=== PATIENT | female | born 1990 | race Caucasian/White ===

== ENCOUNTER 2017-01-13 11:09 | Inpatient (IN) | payer OTHER ==
[~2017-01-13 11:09] MED LIST: Z.0.NO CURRENT MEDS
[2017-01-13 11:10] VITALS: BP 166/89; PULSE 92; RESP 16; TEMP 99.2; O2SAT 99
[2017-01-13] MEDS ORDERED: SODIUM CHLOR 0.9% 1000 ML INJ 1,000 ML IV SCH (11:35)
--- NOTE | 2017-01-13 11:40 | PD ---
HPI Chief Complaint: Abdominal Pain Time Seen by Provider: 11:22 Travel History International Travel<30 days: No Contact w/Intl Traveler<30days: No Traveled to known affect area: No History of Present Illness HPI The patient is a 26-year-old female who presents emergency department for epigastric and right upper quadrant abdominal pain. The patient notes a several month history of intermittent epigastric and right upper quadrant abdominal pain which is sharp, burning, nonradiating, and associated with mild nausea and vomiting. The patient ate hotdogs last night and then developed symptoms. She denies any history of gallstones, gastritis, pancreatitis, or known peptic ulcer disease. Her symptoms have been intermittent for several months, moderate, occasionally worse after eating, and there are no current alleviating factors. She denies any lower abdominal pain, fever, chills, sweats , dysuria, frequency, or urgency. The patient's last menstrual cycle was 3 weeks ago, PFSH Past Medical History Narrative Medical Ovarian cyst Medical History: Denies Significant Hx Diminished Hearing: No ?: Unknown : 0 Past Surgical History Narrative Surgical Noncontributory Tonsillectomy: Yes Social History Alcohol Use: No Tobacco Use: No Substance Use: No Allergies-Medications (Allergen,Severity, Reaction): Coded Allergies: Ceclor (Verified Allergy, Mild, HIVES, 01/13/17) Sulfa (Verified Allergy, Mild, HIVES, 01/13/17) Reported Meds & Prescriptions Reported Meds & Active Scripts Active No Active Prescriptions or Reported Medications Review of Systems Except as stated in HPI: all other systems reviewed are Neg General / Constitutional: No: Fever Cardiovascular: No: Chest Pain or Discomfort Respiratory: No: Shortness of Breath Gastrointestinal: Positive: Nausea, Vomiting, Abdominal Pain, No: Diarrhea Genitourinary: No: Dysuria, Hematuria Physical Exam Narrative GENERAL: Awake, alert, very pleasant 26-year-old female who appears her stated age and is in no acute respiratory distress. SKIN: Focused skin assessment warm/dry. HEAD: Atraumatic. Normocephalic. EYES: No scleral icterus. No injection or drainage. ENT: No nasal bleeding or discharge. Mucous membranes pink and moist. NECK: Trachea midline. No JVD. CARDIOVASCULAR: Regular rate and rhythm. No murmur appreciated. RESPIRATORY: No accessory muscle use. Clear to auscultation. Breath sounds equal bilaterally. GASTROINTESTINAL: Abdomen soft, obese, no rebound tenderness. Bowel epigastric and right upper quadrant tenderness. Back: No CVA tenderness. MUSCULOSKELETAL: No obvious deformities. No clubbing. No cyanosis. No edema. NEUROLOGICAL: Awake and alert. No obvious cranial nerve deficits. Motor grossly within normal limits. Normal speech. PSYCHIATRIC: Appropriate mood and affect; insight and judgment normal. Data Data Last Documented VS Vital Signs Date Time Temp Pulse Resp B/P Pulse Ox O2 Delivery O2 Flow Rate FiO2 01/13/17 12:57 78 17 120/72 97 Room Air 01/13/17 11:10 99.2 Orders Complete Blood Count With Diff (01/13/17 11:35) Comprehensive Metabolic Panel (01/13/17 11:35) Lipase (01/13/17 11:35) Urinalysis - C+S If Indicated (01/13/17 11:35) Us Abdomen Gallbladder (01/13/17 ) Iv Access Insert/Monitor (01/13/17 11:35) Ecg Monitoring (01/13/17 11:35) Oximetry (01/13/17 11:35) Morphine Inj (Morphine Inj) (01/13/17 11:45) Ondansetron Inj (Zofran Inj) (01/13/17 11:45) Sodium Chlor 0.9% 1000 Ml Inj (Ns 1000 M (01/13/17 11:35) Sodium Chloride 0.9% Flush (Ns Flush) (01/13/17 11:45) Al-Mag Hy-Si 40-40-4 Mg/Ml Liq (Mag-Al P (01/13/17 11:45) Lidocaine 2% Viscous (Xylocaine 2% Visco (01/13/17 11:45) Ed Urine Pregnancytest Poc (01/13/17 11:35) Consult Gastroenterology (01/13/17 ) Mri Mrcp W/O Contrast (01/13/17 ) (Hub Use Only)Inp Phy Cons/Ref (01/13/17 ) Admit Order (Ed Use Only) (01/13/17 13:27) Labs Laboratory Tests Test 01/13/17 01/13/17 11:40 11:45 Urine Color YELLOW Urine Turbidity CLEAR Urine pH 5.0 Urine Specific [place] 1.019 Urine Protein NEG mg/dL Urine Glucose (UA) NEG mg/dL Urine Ketones NEG mg/dL Urine Occult Blood NEG Urine Nitrite NEG Urine Bilirubin NEG Urine Urobilinogen LESS THAN 2.0 MG/DL Urine Leukocyte Esterase TRACE Urine RBC 1 /hpf Urine WBC 2 /hpf Urine Squamous Epithelial 1 /hpf Cells Microscopic Urinalysis Comment CULT NOT INDICATED White Blood Count 7.3 TH/MM3 Red Blood Count 4.79 MIL/MM3 Hemoglobin 14.2 GM/DL Hematocrit 42.0 % Mean Corpuscular Volume 87.8 FL Mean Corpuscular Hemoglobin 29.6 PG Mean Corpuscular Hemoglobin 33.8 % Concent Red Cell Distribution Width 12.0 % Platelet Count 202 TH/MM3 Mean Platelet Volume 8.9 FL Neutrophils (%) (Auto) 65.6 % Lymphocytes (%) (Auto) 25.7 % Monocytes (%) (Auto) 7.8 % Eosinophils (%) (Auto) 0.2 % Basophils (%) (Auto) 0.7 % Neutrophils # (Auto) 4.8 TH/MM3 Lymphocytes # (Auto) 1.9 TH/MM3 Monocytes # (Auto) 0.6 TH/MM3 Eosinophils # (Auto) 0.0 TH/MM3 Basophils # (Auto) 0.1 TH/MM3 CBC Comment DIFF FINAL Differential Comment Sodium Level 139 MEQ/L Potassium Level 3.8 MEQ/L Chloride Level 106 MEQ/L Carbon Dioxide Level 27.0 MEQ/L Anion Gap 6 MEQ/L Blood Urea Nitrogen 12 MG/DL Creatinine 0.82 MG/DL Random Glucose 91 MG/DL Calcium Level 8.3 MG/DL Total Bilirubin 1.9 MG/DL Aspartate Amino Transf 285 U/L (AST/SGOT) Alanine Aminotransferase 251 U/L (ALT/SGPT) Alkaline Phosphatase 77 U/L Total Protein 7.7 GM/DL Albumin 4.1 GM/DL Lipase 72844 U/L [facility] Medical Decision Making Medical Screen Exam Complete: Yes Emergency Medical Condition: Yes Medical Record Reviewed: Yes Interpretation(s) Laboratory Tests Test 01/13/17 01/13/17 11:40 11:45 Urine Color YELLOW Urine Turbidity CLEAR Urine pH 5.0 Urine Specific [place] 1.019 Urine Protein NEG mg/dL Urine Glucose (UA) NEG mg/dL Urine Ketones NEG mg/dL Urine Occult Blood NEG Urine Nitrite NEG Urine Bilirubin NEG Urine Urobilinogen LESS THAN 2.0 MG/DL Urine Leukocyte Esterase TRACE Urine RBC 1 /hpf Urine WBC 2 /hpf Urine Squamous Epithelial 1 /hpf Cells Microscopic Urinalysis Comment CULT NOT INDICATED White Blood Count 7.3 TH/MM3 Red Blood Count 4.79 MIL/MM3 Hemoglobin 14.2 GM/DL Hematocrit 42.0 % Mean Corpuscular Volume 87.8 FL Mean Corpuscular Hemoglobin 29.6 PG Mean Corpuscular Hemoglobin 33.8 % Concent Red Cell Distribution Width 12.0 % Platelet Count 202 TH/MM3 Mean Platelet Volume 8.9 FL Neutrophils (%) (Auto) 65.6 % Lymphocytes (%) (Auto) 25.7 % Monocytes (%) (Auto) 7.8 % Eosinophils (%) (Auto) 0.2 % Basophils (%) (Auto) 0.7 % Neutrophils # (Auto) 4.8 TH/MM3 Lymphocytes # (Auto) 1.9 TH/MM3 Monocytes # (Auto) 0.6 TH/MM3 Eosinophils # (Auto) 0.0 TH/MM3 Basophils # (Auto) 0.1 TH/MM3 CBC Comment DIFF FINAL Differential Comment Sodium Level 139 MEQ/L Potassium Level 3.8 MEQ/L Chloride Level 106 MEQ/L Carbon Dioxide Level 27.0 MEQ/L Anion Gap 6 MEQ/L Blood Urea Nitrogen 12 MG/DL Creatinine 0.82 MG/DL Random Glucose 91 MG/DL Calcium Level 8.3 MG/DL Total Bilirubin 1.9 MG/DL Aspartate Amino Transf 285 U/L (AST/SGOT) Alanine Aminotransferase 251 U/L (ALT/SGPT) Alkaline Phosphatase 77 U/L Total Protein 7.7 GM/DL Albumin 4.1 GM/DL Lipase 67624 U/L Ultrasound the gallbladder reveals multiple gallstones without axillary signs of acute cholecystitis. Normal common duct. Differential Diagnosis Differential diagnosis includes gastritis, peptic ulcer disease, pancreatitis, cholecystitis, biliary colic, choledocholithiasis Narrative Course IV was established, labs are drawn and sent, and the patient was placed on cardiac telemetry monitoring and continuous pulse oximetry monitoring. The patient was administered morphine, Zofran, GI cocktail, and IV fluids. Ultrasound reveals multiple gallstones, however, no evidence of acute cholecystitis and the bile duct is normal. However, lipase is elevated greater than 29,000 and AST/ALT are in the 200s with total bili of 1.9, this may be obstructive from stone. Therefore, the on-call can carrier, Dr. Camacho , was paged at 12:51 PM. The on-call medical service was paged for admission. I discussed the patient with the can carrier who agrees with [facility], formal consult has been placed. Physician Communication Physician Communication The on-call medical service was paged for admission. I discussed the patient with Dr. Waller who agrees with admission. Diagnosis Primary Impression: Pancreatitis Qualified Code: K85.90 - Acute pancreatitis, unspecified complication status, unspecified pancreatitis type Admitting Information Admitting Physician Requests: Admit Scripts No Active Prescriptions or Reported Meds Condition: Stable Yuniel Adam MD Jan 13, 2017 11:40
[2017-01-13] MEDS ORDERED: MORPHINE SULFATE 4 MG/ML INJ IV PUSH ONE (11:45)
[2017-01-13] MEDS ORDERED: LIDOCAINE VISCOUS 2% SOLN 15 ML UDC PO ONE (11:45)
[2017-01-13] MEDS ORDERED: SODIUM CHLORIDE 0.9% FLUSH 10 ML FLUSH IV FLUSH PRN ×2 (11:45→13:45)
[2017-01-13] MEDS ORDERED: ONDANSETRON HCL 4 MG/2 ML VIAL IVP ONE (11:45)
[2017-01-13] MEDS ORDERED: ALUMINUM/MAGNESIUM/SIMETH 30 ML CUP PO ONE (11:45)
[2017-01-13 12:02] LABS: AUTOMATED NEUTROPHIL # 4.8 TH/MM3 (1.8-7.7); BASOPHIL # 0.1 TH/MM3 (0-0.2); BASOPHIL % 0.7 % (0.0-2.0); EOSINOPHIL % 0.2 % (0.0-4.0); HEMO FLAGS DIFF FINAL; LYMPH % 25.7 % (9.0-44.0); LYMPHOCYTE # 1.9 TH/MM3 (1.0-4.8); MEAN CELL VOLUME 87.8 FL (80.0-100.0); MEAN CORPUSCULAR HEMOGLOBIN 29.6 PG (27.0-34.0); MEAN CORPUSCULAR HGB CONC 33.8 % (32.0-36.0); MONO % 7.8 % (0.0-8.0); NEUT % 65.6 % (16.0-70.0); PLATELET COUNT 202 TH/MM3 (150-450); RED BLOOD COUNT 4.79 MIL/MM3 (4.00-5.30); WHITE BLOOD COUNT 7.3 TH/MM3 (4.0-11.0)
[2017-01-13 12:07] LABS: BLOOD, URINE NEG (NEG); COMMENT (UR) CULT NOT INDICATED; CULTURE IF INDICATED CULT NOT INDICATED; GLUCOSE,URINE NEG (NEG); KETONE, URINE NEG (NEG); NITRITE,URINE NEG (NEG); SQUAMOUS EPITHELIAL CELL URINE 1 /hpf (0-5); URINE COLOR YELLOW (YELLW/STRAW)
[2017-01-13 12:27] VITALS: O2SAT 99
[2017-01-13 12:27] LABS: ALT (GPT) 251 U/L (10-53); ANION GAP 6 MEQ/L (5-15); AST (GOT) 285 U/L (15-37); BLOOD UREA NITROGEN 12 MG/DL (7-18); CHLORIDE 106 MEQ/L (98-107); POTASSIUM 3.8 MEQ/L (3.5-5.1); SODIUM (NA) 139 MEQ/L (136-145)
[2017-01-13 12:29] LABS: ALKALINE PHOSPHATASE 77 U/L (45-117); TOTAL BILIRUBIN ADULT 1.9 MG/DL (0.2-1.0)
--- NOTE | 2017-01-13 12:47 | RADRPT ---
EXAM DATE/TIME: 01/13/2017 11:50 [facility] COMPARISON: No previous studies available for comparison. INDICATIONS : Right upper quadrant pain. MEDICAL HISTORY : Ovarian cyst. SURGICAL HISTORY : Tonsillectomy. ENCOUNTER: Initial ACUITY: 2 months PAIN SCORE: 6/10 LOCATION: Right upper quadrant MEASUREMENTS: LIVER: 14.3 cm length COMMON DUCT: 3 mm RIGHT KIDNEY: 10.6 x 5.2 x 4.3 cm FINDINGS: LIVER: Normal echotexture without focal lesion or ductal dilatation. COMMON DUCT: No intraluminal mass or stone visualized. GALLBLADDER: Contains no stones, demonstrates no wall thickening or pericholecystic fluid. PANCREAS: The visualized portions are within normal limits. RIGHT KIDNEY: No evidence of hydronephrosis, stone, or mass. CONCLUSION: Multiple gallstones without axillary signs of acute cholecystitis. Normal common duct.. Leeroy Bolden MD FACR on January 13, 2017 at 12:44 Board Certified Radiologist. This report was verified electronically.
[2017-01-13 12:57] VITALS: BP 120/72; PULSE 78; RESP 17; O2SAT 97
[2017-01-13] MEDS ORDERED: NALOXONE HCL 0.4 MG/ML AMP IV PRN (13:45)
[2017-01-13] MEDS: NS + KCL 20 MEQ INJ 1,000 ML IV SCH ×2 (13:45→20:00)
[2017-01-13] MEDS ORDERED: ACETAMINOPHEN 325 MG TAB PO PRN (13:45)
[2017-01-13] MEDS ORDERED: ONDANSETRON HCL 4 MG/2 ML VIAL IVP PRN (13:45)
[2017-01-13] MEDS ORDERED: MORPHINE SULFATE 4 MG/ML INJ IV PRN ×2 (13:45)
[2017-01-13 14:43] VITALS: BP 117/63; PULSE 75; RESP 18; O2SAT 99
[2017-01-13] MEDS: MORPHINE SULFATE 4 MG/ML INJ IV PRN (14:44)
--- NOTE | 2017-01-13 15:06 | HHI.HP ---
[facility] Service [place] [facility] Primary Care Physician No Primary Care Physician Admission Diagnosis pancreatitis rule out obstructive biliary stone Diagnoses: Chief Complaint: abdominal pain Travel History International Travel<30 Days: No Contact w/Intl Traveler <30 Da: No Traveled to Known Affected Are: No History of Present Illness This is a 26-year-old female with history of obesity and ovarian cyst. She presents to the emergency department for epigastric and right upper quadrant abdominal pain. The patient notes a several month history of intermittent sharp nonradiating epigastric and right upper quadrant abdominal pain associated with mild nausea and vomiting. The patient had hotdogs last night and then developed symptoms. Her symptoms have been intermittent for several months occasionally worse after eating. She denies any lower abdominal pain, fever, chills, sweats, dysuria, frequency, or urgency. The patient's last menstrual cycle was 3 weeks ago. Lipase was rj high 29,[address] showing gallstones Review of Systems Except as stated in HPI: all other systems reviewed are Neg Past Family Social History Past Medical History As previously mentioned Past Surgical History Tonsillectomy and tympanostomy Reported Medications None Allergies: Coded Allergies: Ceclor (Verified Allergy, Mild, HIVES, 01/13/17) Sulfa (Verified Allergy, Mild, HIVES, 01/13/17) Family History Diabetes Social History Does not smoke or drink Physical Exam Vital Signs Vital Signs Date Time Temp Pulse Resp B/P Pulse Ox O2 Delivery O2 Flow Rate FiO2 01/13/17 14:43 75 18 117/63 99 Room Air 01/13/17 12:57 78 17 120/72 97 Room Air 01/13/17 12:27 99 Room Air 01/13/17 11:10 99.2 92 16 166/89 99 Physical Exam GENERAL: This is an obese, well-developed patient, in no apparent distress. SKIN: No rashes, ecchymoses or lesions. Cool and dry. HEAD: Atraumatic. Normocephalic. No temporal or scalp tenderness. EYES: Pupils equal round and reactive. Extraocular motions intact. No scleral icterus. No injection or drainage. ENT: Nose without bleeding, purulent drainage or septal hematoma. Throat without erythema, tonsillar hypertrophy or exudate. Uvula midline. Airway patent. NECK: Trachea midline. No JVD or lymphadenopathy. Supple, nontender, no meningeal signs. CARDIOVASCULAR: Regular rate and rhythm without murmurs, gallops, or rubs. RESPIRATORY: Clear to auscultation. Breath sounds equal bilaterally. No wheezes , rales, or rhonchi. GASTROINTESTINAL: Abdomen soft, tender right upper and epigastric areas, nondistended. No guarding. MUSCULOSKELETAL: Extremities without clubbing, cyanosis, or edema. No joint tenderness, effusion, or edema noted. No calf tenderness. Negative Homans sign bilaterally. NEUROLOGICAL: Awake and alert. Cranial nerves II through XII intact. Motor and sensory grossly within normal limits. Five out of 5 muscle strength in all muscle groups. Normal speech. Laboratory Laboratory Tests Test 01/13/17 01/13/17 11:40 11:45 Urine Color YELLOW Urine Turbidity CLEAR Urine pH 5.0 Urine Specific [place] 1.019 Urine Protein NEG Urine Glucose (UA) NEG Urine Ketones NEG Urine Occult Blood NEG Urine Nitrite NEG Urine Bilirubin NEG Urine Urobilinogen LESS THAN 2.0 Urine Leukocyte Esterase TRACE Urine RBC 1 Urine WBC 2 Urine Squamous Epithelial 1 Cells Microscopic Urinalysis Comment CULT NOT INDICATED White Blood Count 7.3 Red Blood Count 4.79 Hemoglobin 14.2 Hematocrit 42.0 Mean Corpuscular Volume 87.8 Mean Corpuscular Hemoglobin 29.6 Mean Corpuscular Hemoglobin 33.8 Concent Red Cell Distribution Width 12.0 Platelet Count 202 Mean Platelet Volume 8.9 Neutrophils (%) (Auto) 65.6 Lymphocytes (%) (Auto) 25.7 Monocytes (%) (Auto) 7.8 Eosinophils (%) (Auto) 0.2 Basophils (%) (Auto) 0.7 Neutrophils # (Auto) 4.8 Lymphocytes # (Auto) 1.9 Monocytes # (Auto) 0.6 Eosinophils # (Auto) 0.0 Basophils # (Auto) 0.1 CBC Comment DIFF FINAL Differential Comment Sodium Level 139 Potassium Level 3.8 Chloride Level 106 Carbon Dioxide Level 27.0 Anion Gap 6 Blood Urea Nitrogen 12 Creatinine 0.82 Random Glucose 91 Calcium Level 8.3 Total Bilirubin 1.9 Aspartate Amino Transf 285 (AST/SGOT) Alanine Aminotransferase 251 (ALT/SGPT) Alkaline Phosphatase 77 Total Protein 7.7 Albumin 4.1 Lipase [id number] Result Diagram: 01/13/17 1145 01/13/17 1145 Imaging Last Impressions Gall Bladder Ultrasound 01/13/17 0000 Signed Impressions: Service Date/Time: Friday, January 13, 2017 11:50 - CONCLUSION: Multiple gallstones without axillary signs of acute cholecystitis. Normal common duct.. Leeroy Bolden MD FACR Assessment and Plan Problem List: (1) Pancreatitis ICD Code: K85.90 Status: Acute Assessment and Plan Acute pancreatitis with gallstones. Patient will be hospitalized for further evaluation and treatment. Nothing by mouth, IV fluids and pain management with IV morphine. For MRCP, if negative will consult general surgery. GI for ERCP in the morning if positive MRCP Obesity. Counseled. Weight reduction GI prophylaxis with Protonix Low risk for DVT Discussed Condition With Patient, family and ER staff Problem Qualifiers (1) Pancreatitis: Qualified Code: K85.90 - Acute pancreatitis, unspecified complication status, unspecified pancreatitis type Rajiv Waller MD Jan 13, 2017 15:06
--- NOTE | 2017-01-13 16:34 | PD.CONS ---
HPI History of Present Illness This is a 26 year old female patient who presented to the ER for evaluation of RUQ pain with nausea/vomiting. She reports that she has had this pain intermittently over the past few months. She reports that it usually occurs after eating certain foods such as hotdogs. Normally, she will walk around the pain will eventually subside after several hours. She reports that she had hot dogs for dinner last night and had the sudden onset of RUQ pain, described as an sharp intermittent pain that radiates to his epigastric area. She has associated nausea, vomiting. She reports that this time, the pain was much more severe and constant. Her grandmother gave her half a meclizine and she states this did help some with her nausea and she her pain slightly and she was able to get some sleep overnight. She woke up and was still having some RUQ pain, but tried to go to work. She reports that she lasted about an hour and was in so much pain that she had to come to the ER. She denies any chance of . PFS Past Medical History Polycystic ovarian disease Past Surgical History Tonsillectomy Tympanostomy Coded Allergies: Ceclor (Verified Allergy, Mild, HIVES, 01/13/17) Sulfa (Verified Allergy, Mild, HIVES, 01/13/17) Medications Allergies Coded Allergies Type Severity Reaction Last Updated Verified Ceclor Allergy Mild HIVES 01/13/17 Yes Sulfa Allergy Mild HIVES 01/13/17 Yes Active Scripts Medications Dose Route/Sig Days Date Category No Active Prescriptions or Reported Medications Rx Family History Sister has DM Sister has PCOS Mother, MGM, Father all have hypothyroidism MGM had gallbladder pancreatitis. Social History Does not smoke or drink Review of Systems Constitutional: DENIES: Fatigue, Fever, Chills Respiratory: DENIES: Cough Cardiovascular: DENIES: Chest pain Gastrointestinal: COMPLAINS OF: Abdominal pain, Nausea, Vomiting, DENIES: Black stools, Bloody stools, Constipation, Diarrhea, Swelling of Abdomen, Heartburn Musculoskeletal: COMPLAINS OF: Back pain Integumentary: DENIES: Jaundice Hematologic/lymphatic: DENIES: Bruising Neurologic: DENIES: Headache Psychiatric: DENIES: Confusion GI Exam Vitals I&O Vital Signs Date Time Temp Pulse Resp B/P Pulse Ox O2 Delivery O2 Flow Rate FiO2 01/13/17 14:43 75 18 117/63 99 Room Air 01/13/17 12:57 78 17 120/72 97 Room Air 01/13/17 12:27 99 Room Air 01/13/17 11:10 99.2 92 16 166/89 99 Imaging Last Impressions Gall Bladder Ultrasound 01/13/17 0000 Signed Impressions: Service Date/Time: Friday, January 13, 2017 11:50 - CONCLUSION: Multiple gallstones without axillary signs of acute cholecystitis. Normal common duct.. Leeroy Bolden MD FACR Laboratory Test 01/13/17 01/13/17 11:40 11:45 Urine Color YELLOW Urine Turbidity CLEAR Urine pH 5.0 Urine Specific [place] 1.019 Urine Protein NEG mg/dL Urine Glucose (UA) NEG mg/dL Urine Ketones NEG mg/dL Urine Occult Blood NEG Urine Nitrite NEG Urine Bilirubin NEG Urine Urobilinogen LESS THAN 2.0 MG/DL Urine Leukocyte Esterase TRACE Urine RBC 1 /hpf Urine WBC 2 /hpf Urine Squamous Epithelial 1 /hpf Cells Microscopic Urinalysis Comment CULT NOT INDICATED White Blood Count 7.3 TH/MM3 Red Blood Count 4.79 MIL/MM3 Hemoglobin 14.2 GM/DL Hematocrit 42.0 % Mean Corpuscular Volume 87.8 FL Mean Corpuscular Hemoglobin 29.6 PG Mean Corpuscular Hemoglobin 33.8 % Concent Red Cell Distribution Width 12.0 % Platelet Count 202 TH/MM3 Mean Platelet Volume 8.9 FL Neutrophils (%) (Auto) 65.6 % Lymphocytes (%) (Auto) 25.7 % Monocytes (%) (Auto) 7.8 % Eosinophils (%) (Auto) 0.2 % Basophils (%) (Auto) 0.7 % Neutrophils # (Auto) 4.8 TH/MM3 Lymphocytes # (Auto) 1.9 TH/MM3 Monocytes # (Auto) 0.6 TH/MM3 Eosinophils # (Auto) 0.0 TH/MM3 Basophils # (Auto) 0.1 TH/MM3 CBC Comment DIFF FINAL Differential Comment Sodium Level 139 MEQ/L Potassium Level 3.8 MEQ/L Chloride Level 106 MEQ/L Carbon Dioxide Level 27.0 MEQ/L Anion Gap 6 MEQ/L Blood Urea Nitrogen 12 MG/DL Creatinine 0.82 MG/DL Random Glucose 91 MG/DL Calcium Level 8.3 MG/DL Total Bilirubin 1.9 MG/DL Aspartate Amino Transf 285 U/L (AST/SGOT) Alanine Aminotransferase 251 U/L (ALT/SGPT) Alkaline Phosphatase 77 U/L Total Protein 7.7 GM/DL Albumin 4.1 GM/DL Lipase 10843 U/L Physical Examination HEENT: Normocephalic; atraumatic; no jaundice. CHEST: CTA CARDIAC: RRR ABDOMEN: Soft, RUQ/Epigastric tenderness, nondistended, no hepatosplenomegaly; bowel sounds are present in all four quadrants. EXTREMITIES: No clubbing, cyanosis, or edema. SKIN: Normal; no rash; no jaundice. CUTTING TORCH OPERATOR: No focal deficits; alert and oriented times three. Assessment and Plan Plan ASSESSMENT: - GS Pancreatitis. Pt has been having intermittent abdominal pain after eating for several months. She had sudden onset of RUQ pain radiating to epigastric area with associated n/v after eating hotdogs yesterday. This time, the pain did not subside and she came to the ER for further evaluation. Gall Bladder Ultrasound (01/13/17)----> Multiple gallstones without axillary signs of acute cholecystitis. Normal common duct. T. Bili 1.9, AST 285, ALT 251, Alk Phosph 77. MRCP was recently done, but results are pending. Lipase 29,197. WBC 7.3. NPO. - Elevated LFTs. Gall Bladder Ultrasound (01/13/17)----> Multiple gallstones without axillary signs of acute cholecystitis. Normal common duct. T. Bili 1.9, AST 285, ALT 251, Alk Phosph 77. MRCP was recently done, but results are pending. ? Choledocholithiasis. - Cholelithiasis, symptomatic. RUQ pain after eating intermittently for several months. PLAN: - NPO - PPI - IVF - Await MRCP - CBC, CMP, Lipase in am - If choledocholithiasis noted on MRCP or if worsening LFTs/pain, will need ERCP with possible sphincterotomy/stent placement in am - Further recommendations to follow based on results of above - Pt seen and examined by Dr. Camacho and myself and this note is written on his behalf Kaur Hutchinson Jan 13, 2017 16:34
--- NOTE | 2017-01-13 16:52 | RADRPT ---
EXAM DATE/TIME: 01/13/2017 15:23 [facility] COMPARISON: CT ABDOMEN & PELVIS W CONTRAST, January 23, 2011, 0:18. US ABDOMEN - GALLBLADDER, January 13, 2017, 11:50. INDICATIONS : Abdominal pain. MEDICAL HISTORY : None. SURGICAL HISTORY : Tonsillectomy. ENCOUNTER: Initial ACUITY: 2 day PAIN SCORE: 2/10 LOCATION: abdomen TECHNIQUE: Multiplanar, multisequence magnetic resonance imaging of the abdomen was performed. High-resolution 3D dataset was utilized to reconstruct maximum-intensity projection (MIP) images. FINDINGS: INTRAHEPATIC BILE DUCTS: Within normal limits. No significant anatomical variant is present. EXTRAHEPATIC BILE DUCTS: The common bile duct measures 3 mm. No stone or filling defect is identified. GALLBLADDER: No wall thickening or pericholecystic fluid. Gallstones are noted within the gallbladder. LIVER: Normal size and signal intensity. No concerning liver lesion is identified on this non-contrast exam. PANCREAS: The main pancreatic duct is normal in size. There is no significant anatomical variant. Signal inte nsity is within normal limits. No mass is visualized on this non-contrast exam. OTHER: Mild splenomegaly is noted. The remaining visualized structures demonstrate no acute abnormality on t his non-contrast exam. CONCLUSION: 1. Cholelithiasis. 2. Mild splenomegaly. 3. Otherwise unremarkable MRCP without contrast. Dirk Weston MD on January 13, 2017 at 16:45 Board Certified Radiologist. This report was verified electronically.
[2017-01-13] MEDS: SODIUM CHLORIDE 0.9% FLUSH 10 ML FLUSH IV FLUSH SCH (20:04)
[2017-01-13] MEDS ORDERED: GLUCAGON 1 MG/ML VIAL OTHER PRN (20:45)
[2017-01-13] MEDS ORDERED: TEMAZEPAM 7.5 MG CAP PO ONE (20:45)
[2017-01-13] MEDS ORDERED: DEXTROSE 50% IN WATER 50 ML VIAL(D50) IV PRN (20:45)
[2017-01-13] MEDS: DEXT 5%-NACL 0.9% 1000 ML INJ 1,000 ML IV SCH (20:53)
[2017-01-13 21:05] VITALS: BP 109/62; PULSE 69; RESP 20; TEMP 99.3; O2SAT 100
[2017-01-14] VITALS (9 sets, daily range): BP systolic 97–136; BP diastolic 53–85; PULSE 60–81; RESP 18–20; TEMP 97.3–98.7; O2SAT 97–100
[2017-01-14] MEDS: DEXT 5%-NACL 0.9% 1000 ML INJ 1,000 ML IV SCH ×2 (06:05→17:00)
[2017-01-14 10:49] LABS: AUTOMATED NEUTROPHIL # 3.6 TH/MM3 (1.8-7.7); BASOPHIL % 0.6 % (0.0-2.0); EOSINOPHIL # 0.1 TH/MM3 (0-0.4); EOSINOPHIL % 1.4 % (0.0-4.0); HEMATOCRIT 42.5 % (35.0-46.0); HEMO FLAGS DIFF FINAL; MEAN CORPUSCULAR HEMOGLOBIN 29.8 PG (27.0-34.0); MEAN CORPUSCULAR HGB CONC 33.1 % (32.0-36.0); MONO % 7.2 % (0.0-8.0); NEUT % 58.8 % (16.0-70.0); PLATELET COUNT 196 TH/MM3 (150-450); RED BLOOD COUNT 4.72 MIL/MM3 (4.00-5.30); RED CELL DISTRIBUTION WIDTH 11.9 % (11.6-17.2); WHITE BLOOD COUNT 6.2 TH/MM3 (4.0-11.0)
[2017-01-14 11:11] LABS: ANION GAP 6 MEQ/L (5-15); AST (GOT) 101 U/L (15-37); BICARBONATE 24.7 MEQ/L (21.0-32.0); BLOOD UREA NITROGEN 8 MG/DL (7-18); CHLORIDE 109 MEQ/L (98-107); GLOMERULAR FILTRATION RATE 91 ML/MIN (>89); POTASSIUM 3.8 MEQ/L (3.5-5.1); SODIUM (NA) 140 MEQ/L (136-145)
[2017-01-14 11:12] LABS: ALT (GPT) 195 U/L (10-53)
[2017-01-14 11:15] LABS: ALKALINE PHOSPHATASE 72 U/L (45-117); TOTAL BILIRUBIN ADULT 1.1 MG/DL (0.2-1.0)
[2017-01-14] MEDS: MORPHINE SULFATE 4 MG/ML INJ IV PRN (11:29)
--- NOTE | 2017-01-14 13:17 | HHI.PR ---
Subjective Remarks Follow-up pancreatitis. Feeling much better denies nausea, vomiting and abdominal pain. Patient requesting to see a surgeon for possible gallbladder surgery. Discussed with RN Objective Vitals Vital Signs Date Time Temp Pulse Resp B/P Pulse Ox O2 Delivery O2 Flow Rate FiO2 01/14/17 12:52 98.7 60 20 97/53 99 01/14/17 09:00 97.3 72 20 109/58 99 01/14/17 08:25 99 21 01/14/17 04:00 97.8 65 20 102/71 99 01/14/17 00:55 101/70 01/14/17 00:00 97.7 67 20 98/54 98 01/13/17 21:05 99.3 69 20 109/62 100 01/13/17 14:43 75 18 117/63 99 Room Air I/O 01/13/17 01/13/17 01/13/17 01/14/17 01/14/17 01/14/17 07:00 15:00 23:00 07:00 15:00 23:00 Intake Total 1100 ml Balance 1100 ml Intake IV Total 1100 ml # Voids 1 1 # Bowel Movements 0 Result Diagram: 01/14/17 0944 01/14/17 0944 Imaging Last Impressions Gall Bladder Ultrasound 01/13/17 0000 Signed Impressions: Service Date/Time: Friday, January 13, 2017 11:50 - CONCLUSION: Multiple gallstones without axillary signs of acute cholecystitis. Normal common duct.. Leeroy Bolden MD FACR Cholangiopancreatography MRI 01/13/17 0000 Signed Impressions: Service Date/Time: Friday, January 13, 2017 15:23 - CONCLUSION: 1. Cholelithiasis. 2. Mild splenomegaly. 3. Otherwise unremarkable MRCP without contrast. Dirk Weston MD Objective Remarks GENERAL: Well-developed obese in no distress SKIN: Warm and dry. HEAD: Atraumatic. Normocephalic. EYES: Pupils equal and round. No scleral icterus. No injection or drainage. ENT: No nasal bleeding or discharge. Mucous membranes pink and moist. NECK: Trachea midline. No JVD. CARDIOVASCULAR: Regular rate and rhythm. RESPIRATORY: No accessory muscle use. Clear to auscultation. Breath sounds equal bilaterally. GASTROINTESTINAL: Abdomen soft, slightly tender right upper quadrant, nondistended. MUSCULOSKELETAL: Extremities without clubbing, cyanosis, or edema. No obvious deformities. NEUROLOGICAL: Awake and alert. No obvious cranial nerve deficits. Motor grossly within normal limits. Five out of 5 muscle strength in the arms and legs. Normal speech. PSYCHIATRIC: Appropriate mood and affect; insight and judgment normal. Procedures None A/P Problem List: (1) Pancreatitis ICD Code: K85.90 Status: Acute Assessment and Plan Acute pancreatitis with gallstones. Clinically improved lipase almost within normal limits. MRCP with no ductal dilatation. Transaminitis improving. Trial clear liquid, the new IV fluids and pain management with IV morphine. Consult general surgery for possible cholecystectomy. Obesity. Counseled. Weight reduction GI prophylaxis with Protonix Low risk for DVT Discharge Planning Not ready for discharge Problem Qualifiers (1) Pancreatitis: Qualified Code: K85.90 - Acute pancreatitis, unspecified complication status, unspecified pancreatitis type Rajiv Waller MD Jan 14, 2017 13:17
--- NOTE | 2017-01-14 14:20 | HHI.GIFU ---
Subjective Remarks Pt sitting up in bed, visiting with family. Says her pain is much improved. ( Karen Pulido) Objective Vitals I&O Vital Signs Date Time Temp Pulse Resp B/P Pulse Ox O2 Delivery O2 Flow Rate FiO2 01/14/17 12:52 98.7 60 20 97/53 99 01/14/17 09:00 97.3 72 20 109/58 99 01/14/17 08:25 99 21 01/14/17 04:00 97.8 65 20 102/71 99 01/14/17 00:55 101/70 01/14/17 00:00 97.7 67 20 98/54 98 01/13/17 21:05 99.3 69 20 109/62 100 01/13/17 14:43 75 18 117/63 99 Room Air I/O 01/13/17 01/13/17 01/13/17 01/14/17 01/14/17 01/14/17 07:00 15:00 23:00 07:00 15:00 23:00 Intake Total 1100 ml Balance 1100 ml Intake IV Total 1100 ml # Voids 1 1 # Bowel Movements 0 Laboratory Laboratory Tests Test 01/14/17 09:44 White Blood Count 6.2 Red Blood Count 4.72 Hemoglobin 14.1 Hematocrit 42.5 Mean Corpuscular Volume 90.0 Mean Corpuscular Hemoglobin 29.8 Mean Corpuscular Hemoglobin 33.1 Concent Red Cell Distribution Width 11.9 Platelet Count 196 Mean Platelet Volume 9.0 Neutrophils (%) (Auto) 58.8 Lymphocytes (%) (Auto) 32.0 Monocytes (%) (Auto) 7.2 Eosinophils (%) (Auto) 1.4 Basophils (%) (Auto) 0.6 Neutrophils # (Auto) 3.6 Lymphocytes # (Auto) 2.0 Monocytes # (Auto) 0.4 Eosinophils # (Auto) 0.1 Basophils # (Auto) 0.0 CBC Comment DIFF FINAL Differential Comment Sodium Level 140 Potassium Level 3.8 Chloride Level 109 Carbon Dioxide Level 24.7 Anion Gap 6 Blood Urea Nitrogen 8 Creatinine 0.77 Estimat Glomerular Filtration 91 Rate Random Glucose 79 Calcium Level 8.2 Total Bilirubin 1.1 Aspartate Amino Transf 101 (AST/SGOT) Alanine Aminotransferase 195 (ALT/SGPT) Alkaline Phosphatase 72 Total Protein 7.1 Albumin 3.7 Lipase 543 Imaging Last Impressions Gall Bladder Ultrasound 01/13/17 0000 Signed Impressions: Service Date/Time: Friday, January 13, 2017 11:50 - CONCLUSION: Multiple gallstones without axillary signs of acute cholecystitis. Normal common duct.. Leeroy Bolden MD FACR Cholangiopancreatography MRI 01/13/17 0000 Signed Impressions: Service Date/Time: Friday, January 13, 2017 15:23 - CONCLUSION: 1. Cholelithiasis. 2. Mild splenomegaly. 3. Otherwise unremarkable MRCP without contrast. Dirk Weston MD Physical Exam HEENT: PERRL; normocephalic; atraumatic; no jaundice. CHEST: CTA CARDIAC: RRR ABDOMEN: Soft, obese, mild TTP RUQ; bowel sounds are present in all four quadrants. EXTREMITIES: No clubbing, cyanosis, or edema. SKIN: Normal; no rash; no jaundice. PIPE COREMAKER: No focal deficits; alert and oriented times three. (Karen Pulido) Assessment and Plan Plan ASSESSMENT: - GS Pancreatitis. improving - lipase down to 543 Pt has been having intermittent abdominal pain after eating for several months. She had sudden onset of RUQ pain radiating to epigastric area with associated n/v after eating hotdogs yesterday. This time, the pain did not subside and she came to the ER for further evaluation. Gall Bladder Ultrasound (01/13/17)----> Multiple gallstones without axillary signs of acute cholecystitis. Normal common duct. MRCP (01/13/17 ---> cholelithiasis, mild splenomegaly, otherwise unremarkable T. Bili 1.9, AST 285, ALT 251, Alk Phosph 77, Lipase 29,197 on admission.. WBC WNL - Elevated LFTs. - improving. Gall Bladder Ultrasound (01/13/17)----> Multiple gallstones without axillary signs of acute cholecystitis. Normal common duct. MRCP as above. - Cholelithiasis, symptomatic. RUQ pain after eating intermittently for several months. d/w primary, GS consulted. PLAN: - low fat diet - PPI - await GS consult - supportive care - monitor LFTs - Pt seen and examined by Dr. House and myself and this note is written on his behalf (Karen Pulido) Physician Comments Patient seen and examined Agree with above Continue with current supportive care Monitor labs Await surgical evaluation (Chaim House MD) Karen Pulido Jan 14, 2017 14:20 Chaim House MD Jan 14, 2017 15:33
[2017-01-14] MEDS ORDERED: metroNIDAZOLE 500 MG INJ 100 ML IV SCH (18:15)
[2017-01-14] MEDS ORDERED: ceFAZolin 2 GM PREMIX 50 ML IV SCH (18:15)
--- NOTE | 2017-01-14 18:55 | MB ---
cc: TONY COKER MD DATE OF CONSULTATION 01/14/[address] Waller REASON FOR CONSULTATION Gallstone pancreatitis BRIEF HISTORY This is a 26-year-old obese woman who represented to the emergency department due to severe abdominal pain and nausea. She has had multiple episodes less severe over the past several months. Workup demonstrated gallstones and pancreatitis. She had an ultrasound of her gallbladder which showed the gallstones, normal ductal structures. An MRCP showed no evidence of ductal dilatation or filling defect in the common bile duct. Her lipase is decreased from greater than 29,000 to 543. Her abdominal exam is benign. PAST SURGICAL HISTORY She has had no prior abdominal surgeries. ALLERGIES CECLOR SULFA PAST MEDICAL HISTORY Tonsillectomy and tubes in her ears but no prior abdominal surgery. SOCIAL HISTORY She is a nonsmoker, nondrinker. 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 FAMILY HISTORY Her grandmother had her gallbladder removed. No other significant medical problems. REVIEW OF SYSTEMS She denies unusual bleeding tendencies. She has no primary lung or heart disorder. She has no liver or kidney problems. No history of strokes or seizures, diabetes or thyroid gland problems. She does not take any blood thinning medications. PHYSICAL EXAMINATION GENERAL: A young pleasant woman, overweight, pleasant and cooperative for the exam. VITAL SIGNS: Temperature is 98.6, pulse 81, respiratory rate 20, blood pressure 118/71, O2 sat 97%. HEENT: She is normocephalic, atraumatic. Pupils are four, round, equal and reactive. Her sclerae are anicteric. Oropharynx is clear. She has good dentition. Her mucous membranes are moist. NECK: Supple without adenopathy. Midline trachea. No jugular venous distension. LUNGS: Clear and equal anteriorly bilaterally. CARDIAC: Heart sounds are distant but show no obvious murmur, rub or gallop. BREASTS/GENITAL/RECTAL: Exams were deferred. ABDOMEN: Soft and nondistended. She has normal active bowel sounds. She has no scars. She is nontender to palpation. EXTREMITIES Her extremities show no cyanosis, clubbing or edema. She has equal radial pulses. NEUROLOGIC: She is awake, alert, oriented. She has no gross motor or sensory deficit. LABORATORY DATA Labs show normal white count, normal differential. Hemoglobin 14, platelet count is 196. Chemistries show potassium of 38, creatinine 0.77. Her total bilirubin went down from 1.9 to 1.1, AST and ALT have also decreased from 285 and 251 to 101 and 195. Her lipase was 29,197 and is now 543. Her albumin was 3.7. IMAGING STUDIES As discussed above. The MRCP shows cholelithiasis, mild splenomegaly and an otherwise unremarkable MRCP. ASSESSMENT A 26-year-old with a recent several-month history of upper abdominal pain, nausea associated with fatty food intolerance who has developed an apparent episode of gallstone pancreatitis which appears to be resolving fairly rapidly. I discussed with her The recommendations received were laparoscopic cholecystectomy. The procedure in detail plus risks of bleeding, infection, injury to intra-abdominal contents including liver, bile duct or bowel, possible open surgery, DVT, pulmonary embolus and expectations for recovery. She understands and wished to proceed. I will contact the operating room to see when we can schedule it, whether we can do tomorrow, Monday, or will do it on Monday. The patient understands and wished to proceed as recommended. MD ARMANDO Aponte/ /5:28 PM /6:36 PM
[2017-01-14] MEDS: SODIUM CHLORIDE 0.9% FLUSH 10 ML FLUSH IV FLUSH SCH (20:50)
[2017-01-15] VITALS (7 sets, daily range): BP systolic 109–125; BP diastolic 55–67; PULSE 64–97; RESP 17–19; TEMP 96–99; O2SAT 95–100
[2017-01-15] MEDS: DEXT 5%-NACL 0.9% 1000 ML INJ 1,000 ML IV SCH ×3 (03:00→23:00)
[2017-01-15] MEDS ORDERED: BUPIVACAINE/EPINEPHRINE 0.5% PF 30 ML VIAL ONE (07:59)
[2017-01-15] MEDS ORDERED: ACETAMINOPHEN 1000 MG/100 ML VIAL IV ONE (08:04)
[2017-01-15] MEDS: SODIUM CHLORIDE 0.9% FLUSH 10 ML FLUSH IV FLUSH SCH ×2 (08:16→21:00)
[2017-01-15] MEDS ORDERED: LEVOFLOXACIN 500 MG PREMIX INJ 100 ML IV ONE (08:41)
[2017-01-15] MEDS ORDERED: HYDROmorphone HCL PF 1 MG/ML VIAL IV PRN (09:30)
[2017-01-15] MEDS ORDERED: MAGNESIUM HYDROXIDE SUSP 30 ML CUP PO PRN (09:30)
[2017-01-15] MEDS ORDERED: SODIUM CHLORIDE 0.9% FLUSH 10 ML FLUSH IV FLUSH PRN (09:30)
[2017-01-15] MEDS ORDERED: DO NOT ADM ANY ANTICOAGULANT DRUGS PRN (09:30)
[2017-01-15] MEDS ORDERED: Post-op Orders (for Pharmacy) MISC XX ONE (09:30)
[2017-01-15] MEDS ORDERED: HYDR-3533 PO (09:31)
--- NOTE | 2017-01-15 09:39 | PD.OP ---
Operative Report Date of Surgery: Jan 15, 2017 Preoperative Diagnosis: gallstone pancreatitis Postoperative Diagnosis: same Procedure: lap steffany Anesthesia: general Surgeon: Larry Bryant Tie Puller(s): staff Operation and Findings: Gb to path. EBL less than 5 ml. Larry Bryant MD Jan 15, 2017 09:39
--- NOTE | 2017-01-15 09:40 | HHI.DS ---
Discharge Summary Admission Date Jan 13, 2017 at 13:29 Admitting Diagnosis pancreatitis rule out obstructive biliary stone Procedures lap steffany CBC/BMP: 01/14/17 0944 01/14/17 0944 Significant Findings Laboratory Tests Test 01/13/17 01/13/17 01/14/17 11:40 11:45 09:44 Urine Leukocyte Esterase TRACE (NEG) Calcium Level 8.3 MG/DL 8.2 MG/DL (8.5-10.1) (8.5-10.1) Total Bilirubin 1.9 MG/DL 1.1 MG/DL (0.2-1.0) (0.2-1.0) Aspartate Amino Transf 285 U/L (15-37) 101 U/L (15-37) (AST/SGOT) Alanine Aminotransferase 251 U/L (10-53) 195 U/L (10-53) (ALT/SGPT) Lipase 83786 U/L 543 U/L (73-393) (73-393) Chloride Level 109 MEQ/L (98-107) PE at Discharge steri strips intact Pt Condition on Discharge: Good Discharge Disposition: Discharge Home Discharge Instructions Activities you can perform: Shower Only-No Bath Activities to Avoid: Driving for 24 hrs, Strenuous Activity Larry Bryant MD Jan 15, 2017 09:40
[2017-01-15] MEDS ORDERED: MIDAZOLAM HCL 2 MG/2 ML VIAL ONE (09:45)
[2017-01-15] MEDS ORDERED: fentaNYL CITRATE 250 MCG/5 ML AMP ONE (09:45)
[2017-01-15] MEDS ORDERED: PROPOFOL 200 MG/20 ML AMP IV ONE (09:47)
[2017-01-15] MEDS ORDERED: ONDANSETRON HCL 4 MG/2 ML VIAL IV PUSH ONE (09:48)
[2017-01-15] MEDS ORDERED: LACTATED RINGER'S 1000 ML INJ 1,000 ML IV ONE (09:48)
[2017-01-15] MEDS ORDERED: NEOSTIGMINE 3 MG/3 ML SYR IV ONE (09:48)
[2017-01-15] MEDS ORDERED: *morphine SULFATE 8 MG/ML PERIprocedure ONLY ONE (09:56)
--- NOTE | 2017-01-15 11:45 | HHI.PR ---
Subjective Remarks Follow-up gallstone pancreatitis. Patient underwent laparoscopic cholecystectomy earlier today. Since then complains of chest tightness no wheezes or history of asthma. Also has sore throat and nausea. Discussed with RN Objective Vitals Vital Signs Date Time Temp Pulse Resp B/P Pulse Ox O2 Delivery O2 Flow Rate FiO2 01/15/17 10:15 98.9 80 18 118/67 99 Nasal Cannula 2 01/15/17 10:00 76 17 114/60 99 Nasal Cannula 2 01/15/17 09:45 75 21 118/63 98 Nasal Cannula 2 01/15/17 09:38 99.1 84 20 128/67 98 Nasal Cannula 2 Manual Cuff/Auscultation 01/15/17 08:00 98.2 68 18 117/58 99 01/15/17 04:30 98.1 64 18 120/66 100 01/15/17 00:00 97.7 67 19 125/67 100 01/14/17 21:30 98.4 79 18 136/85 100 01/14/17 21:14 98 21 01/14/17 16:17 98.6 81 20 118/71 97 01/14/17 12:52 98.7 60 20 97/53 99 I/O 01/14/17 01/14/17 01/14/17 01/15/17 01/15/17 01/15/17 07:00 15:00 23:00 07:00 15:00 23:00 Intake Total 1100 ml 1000 ml 600 ml 1000 ml Balance 1100 ml 1000 ml 600 ml 1000 ml Intake Oral 1000 ml 600 ml IV Total 1100 ml 400 ml Other 600 ml # Voids 1 1 3 # Bowel Movements 0 0 0 Result Diagram: 01/14/1744 01/14/17 0944 Imaging Last Impressions Gall Bladder Ultrasound 01/13/17 0000 Signed Impressions: Service Date/Time: Friday, January 13, 2017 11:50 - CONCLUSION: Multiple gallstones without axillary signs of acute cholecystitis. Normal common duct.. Leeroy Bolden MD FACR Cholangiopancreatography MRI 01/13/17 0000 Signed Impressions: Service Date/Time: Friday, January 13, 2017 15:23 - CONCLUSION: 1. Cholelithiasis. 2. Mild splenomegaly. 3. Otherwise unremarkable MRCP without contrast. Dirk Weston MD Objective Remarks GENERAL: Well-developed obese in mild distress due to pain and nausea SKIN: Warm and dry. HEAD: Atraumatic. Normocephalic. EYES: Pupils equal and round. No scleral icterus. No injection or drainage. ENT: No nasal bleeding or discharge. Mucous membranes pink and moist. NECK: Trachea midline. No JVD. CARDIOVASCULAR: Regular rate and rhythm. RESPIRATORY: No accessory muscle use. Clear to auscultation. Breath sounds equal bilaterally. GASTROINTESTINAL: Abdomen soft, slightly tender upper and lower quadrants, trocar sites intact, nondistended. MUSCULOSKELETAL: Extremities without clubbing, cyanosis, or edema. No obvious deformities. NEUROLOGICAL: Awake and alert. No obvious cranial nerve deficits. Motor grossly within normal limits. Five out of 5 muscle strength in the arms and legs. Normal speech. PSYCHIATRIC: Appropriate mood and affect; insight and judgment normal. Procedures Laparoscopic cholecystectomy A/P Problem List: (1) Pancreatitis ICD Code: K85.90 Status: Acute Assessment and Plan Acute pancreatitis with gallstones. Clinically improved lipase almost within normal limits. MRCP with no ductal dilatation. Transaminitis improving. Status post laparoscopic cholecystectomy by general surgery. Postoperative care with wound care, pain management with Lortab and IV morphine and diet as tolerated. She has been cleared for discharge by general surgery if tolerating by mouth and pain management by by mouth meds Chest tightness. Vital signs stable. Lungs clear. Albuterol as needed. If persistent obtain chest x-ray Obesity. Weight reduction GI prophylaxis with Protonix Low risk for DVT Discharge Planning Possible discharge later today or in the morning Problem Qualifiers (1) Pancreatitis: Qualified Code: K85.90 - Acute pancreatitis, unspecified complication status, unspecified pancreatitis type Rajiv Waller MD Jan 15, 2017 11:45
--- NOTE | 2017-01-15 11:48 | HHI.GIFU ---
Subjective Remarks resting in bed, family at bedside. Just returned from OR for lap steffany. Has nausea, abd soreness. Says she did ok yesterday with heart healthy diet. ( Karen Pulido) Objective Vitals I&O Vital Signs Date Time Temp Pulse Resp B/P Pulse Ox O2 Delivery O2 Flow Rate FiO2 01/15/17 10:15 98.9 80 18 118/67 99 Nasal Cannula 2 01/15/17 10:00 76 17 114/60 99 Nasal Cannula 2 01/15/17 09:45 75 21 118/63 98 Nasal Cannula 2 01/15/17 09:38 99.1 84 20 128/67 98 Nasal Cannula 2 Manual Cuff/Auscultation 01/15/17 08:00 98.2 68 18 117/58 99 01/15/17 04:30 98.1 64 18 120/66 100 01/15/17 00:00 97.7 67 19 125/67 100 01/14/17 21:30 98.4 79 18 136/85 100 01/14/17 21:14 98 21 01/14/17 16:17 98.6 81 20 118/71 97 01/14/17 12:52 98.7 60 20 97/53 99 I/O 01/14/17 01/14/17 01/14/17 01/15/17 01/15/17 01/15/17 07:00 15:00 23:00 07:00 15:00 23:00 Intake Total 1100 ml 1000 ml 600 ml 1000 ml Balance 1100 ml 1000 ml 600 ml 1000 ml Intake Oral 1000 ml 600 ml IV Total 1100 ml 400 ml Other 600 ml # Voids 1 1 3 # Bowel Movements 0 0 0 Imaging Last Impressions Gall Bladder Ultrasound 01/13/17 0000 Signed Impressions: Service Date/Time: Friday, January 13, 2017 11:50 - CONCLUSION: Multiple gallstones without axillary signs of acute cholecystitis. Normal common duct.. Leeroy Bolden MD FACR Cholangiopancreatography MRI 01/13/17 0000 Signed Impressions: Service Date/Time: Friday, January 13, 2017 15:23 - CONCLUSION: 1. Cholelithiasis. 2. Mild splenomegaly. 3. Otherwise unremarkable MRCP without contrast. Dirk Weston MD Physical Exam HEENT: PERRL; normocephalic; atraumatic; no jaundice. CHEST: CTA CARDIAC: RRR ABDOMEN: Soft, obese, diffuse TTP; bowel sounds faint, 2 x incision w/ steris, gauze over umbilical incision, all clean and dry. EXTREMITIES: No clubbing, cyanosis, or edema. SKIN: Normal; no rash; no jaundice. CARPET OR RUG LAYER HELPER: lethargic (Karen Pulido) Assessment and Plan Plan ASSESSMENT: - GS Pancreatitis. improving - lipase down to 543 Pt has been having intermittent abdominal pain after eating for several months. She had sudden onset of RUQ pain radiating to epigastric area with associated n/v after eating hotdogs yesterday. This time, the pain did not subside and she came to the ER for further evaluation. Gall Bladder Ultrasound (01/13/17)----> Multiple gallstones without axillary signs of acute cholecystitis. Normal common duct. MRCP (01/13/17 ---> cholelithiasis, mild splenomegaly, otherwise unremarkable T. Bili 1.9, AST 285, ALT 251, Alk Phosph 77, Lipase 29,197 on admission.. WBC WNL - Elevated LFTs. - improving. Gall Bladder Ultrasound (01/13/17)----> Multiple gallstones without axillary signs of acute cholecystitis. Normal common duct. MRCP as above. - Cholelithiasis, symptomatic. RUQ pain after eating intermittently for several months. d/w primary, s/p lap steffany. PLAN: - further management per GS, s/p lap steffany - PPI - supportive care - monitor LFTs - GI will s/o, please reconsult if needed - Pt seen and examined by Dr. House and myself and this note is written on his behalf (Karen Pulido) Physician Comments Patient seen and examined Agree with above Continue with current supportive care Monitor labs Post lap cholecystectomy no further action from a GI perspective We will sign off (Chaim House MD) Karen Pulido Jan 15, 2017 11:48 Chaim House MD Jan 15, 2017 13:17
[2017-01-15] MEDS: LACTATED RINGER'S 1000 ML INJ 1,000 ML IV SCH ×2 (12:44→19:26)
[2017-01-15] MEDS: KETOROLAC TROMETHAMINE 30 MG/ML (IVP) VIAL IV PUSH SCH ×2 (12:45→16:48)
[2017-01-15] MEDS ORDERED: RESP: ALBUTEROL 2.5 MG/3 ML NEB (PRN) NEB (13:00)
[2017-01-15] MEDS: ACETAMINOPHEN 1000 MG/100 ML VIAL IV SCH ×2 (13:34→21:31)
[2017-01-15] MEDS ORDERED: BENZOCAINE-MENTHOL (SUGAR FREE) 15 MG-3.6 MG LOZENGE BUCCAL PRN (14:30)
--- NOTE | 2017-01-15 14:36 | HHI.DCPOC ---
Discharge Care Plan Diagnosis: (1) postop lap steffany (2) Pancreatitis Your Health Problems Are: Difficulty with ADL Exercise Tolerance Goals to Promote Your Health * To prevent worsening of your condition and complications * To maintain your health at the optimal level Directions to Meet Your Goals Take your medications as prescribed Follow your dietary instruction Follow activity as directed Keep your appointments as scheduled Take your immunizations and boosters as scheduled If your symptoms worsen call your PCP, if no PCP go to Urgent Care Center or Emergency Room Smoking is Dangerous to Your Health. Avoid second hand smoke Call the 24-hour hour crisis hotline for domestic abuse at Rajiv Waller MD Jan 15, 2017 14:36
--- NOTE | 2017-01-15 15:34 | RADRPT ---
EXAM DATE/TIME: 01/15/2017 15:01 [facility] COMPARISON: No previous studies available for comparison. INDICATIONS : Chest tightness following cholecystectomy surgery this morning. MEDICAL HISTORY : Ovarian cyst. SURGICAL HISTORY : Tonsillectomy. ENCOUNTER: Initial ACUITY: 1 day PAIN SCORE: 2/10 LOCATION: Bilateral chest FINDINGS: A single view of the chest demonstrates the lungs to be symmetrically aerated without evidence of mas s, infiltrate or effusion. The cardiomediastinal contours are unremarkable. Osseous structures are intact. CONCLUSION: 1. No acute cardiopulmonary disease. Dany Arellano MD on January 15, 2017 at 15:31 Board Certified Radiologist. This report was verified electronically.
[2017-01-15] MEDS: ACETAMINOPHEN/HYDROcodone 325 MG/5 MG TAB PO PRN ×2 (17:57→21:32)
[2017-01-15] MEDS: DOCUSATE SODIUM 100 MG CAP PO SCH (21:31)
[2017-01-16] MEDS: KETOROLAC TROMETHAMINE 30 MG/ML (IVP) VIAL IV PUSH SCH ×3 (00:03→12:52)
[2017-01-16] MEDS: ACETAMINOPHEN/HYDROcodone 325 MG/5 MG TAB PO PRN ×3 (00:04→14:17)
[2017-01-16] MEDS: ACETAMINOPHEN 1000 MG/100 ML VIAL IV SCH ×2 (03:27→09:18)
[2017-01-16 04:00] VITALS: BP 110/64; PULSE 70; RESP 16; TEMP 97.3; O2SAT 96
[2017-01-16] MEDS: LACTATED RINGER'S 1000 ML INJ 1,000 ML IV SCH (05:26)
[2017-01-16] MEDS: ENOXAPARIN SODIUM 30 MG/0.3 ML SYRINGE SQ SCH ×2 (08:00→09:20)
[2017-01-16 08:39] VITALS: BP 110/54; PULSE 72; RESP 16; TEMP 97.8; O2SAT 97
[2017-01-16] MEDS: DOCUSATE SODIUM 100 MG CAP PO SCH (09:19)
[2017-01-16] MEDS: SODIUM CHLORIDE 0.9% FLUSH 10 ML FLUSH IV FLUSH SCH (09:20)
[2017-01-16 09:40] VITALS: O2SAT 95
[2017-01-16 09:46] LABS: AUTOMATED NEUTROPHIL # 8.3 TH/MM3 (1.8-7.7); BASOPHIL % 0.1 % (0.0-2.0); EOSINOPHIL % 0.2 % (0.0-4.0); HEMO FLAGS DIFF FINAL; LYMPH % 18.8 % (9.0-44.0); LYMPHOCYTE # 2.1 TH/MM3 (1.0-4.8); MEAN CELL VOLUME 88.3 FL (80.0-100.0); MEAN CORPUSCULAR HEMOGLOBIN 30.5 PG (27.0-34.0); MEAN CORPUSCULAR HGB CONC 34.5 % (32.0-36.0); MONO % 6.2 % (0.0-8.0); NEUT % 74.7 % (16.0-70.0); PLATELET COUNT 242 TH/MM3 (150-450); RED BLOOD COUNT 4.53 MIL/MM3 (4.00-5.30); RED CELL DISTRIBUTION WIDTH 11.9 % (11.6-17.2); WHITE BLOOD COUNT 11.1 TH/MM3 (4.0-11.0)
[2017-01-16 10:10] LABS: ANION GAP 9 MEQ/L (5-15); AST (GOT) 43 U/L (15-37); BICARBONATE 24.1 MEQ/L (21.0-32.0); BLOOD UREA NITROGEN 9 MG/DL (7-18); CHLORIDE 102 MEQ/L (98-107); GLOMERULAR FILTRATION RATE 99 ML/MIN (>89); MAGNESIUM 2.2 MG/DL (1.5-2.5); POTASSIUM 3.5 MEQ/L (3.5-5.1); SODIUM (NA) 135 MEQ/L (136-145)
[2017-01-16 10:11] LABS: ALT (GPT) 118 U/L (10-53)
[2017-01-16 10:12] LABS: ALKALINE PHOSPHATASE 65 U/L (45-117); TOTAL BILIRUBIN ADULT 0.4 MG/DL (0.2-1.0)
--- NOTE | 2017-01-16 10:39 | HHI.DS ---
Discharge Summary Admission Date Jan 13, 2017 at 13:29 Discharge Date: Jan 16, 2017 Admitting Diagnosis pancreatitis rule out obstructive biliary stone (1) Pancreatitis ICD Code: K85.90 Diagnosis: Principal Procedures Laparoscopic cholecystectomy Brief History - From Admission This is a 26-year-old female with history of obesity and ovarian cyst. She presents to the emergency department for epigastric and right upper quadrant abdominal pain. The patient notes a several month history of intermittent sharp nonradiating epigastric and right upper quadrant abdominal pain associated with mild nausea and vomiting. The patient had hotdogs last night and then developed symptoms. Her symptoms have been intermittent for several months occasionally worse after eating. She denies any lower abdominal pain, fever, chills, sweats, dysuria, frequency, or urgency. The patient's last menstrual cycle was 3 weeks ago. Lipase was rj high 29,[address] showing gallstones CBC/BMP: 01/16/17 0902 01/16/17 0902 Significant Findings Laboratory Tests Test 01/13/17 01/13/17 01/14/17 01/16/17 11:40 11:45 09:44 09:02 Urine Leukocyte Esterase TRACE (NEG) Calcium Level 8.3 MG/DL 8.2 MG/DL 7.8 MG/DL (8.5-10.1) (8.5-10.1) (8.5-10.1) Total Bilirubin 1.9 MG/DL 1.1 MG/DL (0.2-1.0) (0.2-1.0) Aspartate Amino Transf 285 U/L (15-37) 101 U/L (15-37) 43 U/L (15-37) (AST/SGOT) Alanine Aminotransferase 251 U/L (10-53) 195 U/L (10-53) 118 U/L (10-53) (ALT/SGPT) Lipase 54312 U/L 543 U/L (73-393) (73-393) Chloride Level 109 MEQ/L (98-107) White Blood Count 11.1 TH/MM3 (4.0-11.0) Neutrophils (%) (Auto) 74.7 % (16.0-70.0) Neutrophils # (Auto) 8.3 TH/MM3 (1.8-7.7) Sodium Level 135 MEQ/L (136-145) Random Glucose 127 MG/DL (74-106) Albumin 3.3 GM/DL (3.4-5.0) Imaging Last Impressions Chest X-Ray 01/15/17 0000 Signed Impressions: Service Date/Time: Sunday, January 15, 2017 15:01 - CONCLUSION: 1. No acute cardiopulmonary disease. Dany Arellano MD Gall Bladder Ultrasound 01/13/17 0000 Signed Impressions: Service Date/Time: Friday, January 13, 2017 11:50 - CONCLUSION: Multiple gallstones without axillary signs of acute cholecystitis. Normal common duct.. Leeroy Bolden MD FACR Cholangiopancreatography MRI 01/13/17 0000 Signed Impressions: Service Date/Time: Friday, January 13, 2017 15:23 - CONCLUSION: 1. Cholelithiasis. 2. Mild splenomegaly. 3. Otherwise unremarkable MRCP without contrast. Dirk Weston MD PE at Discharge GENERAL: Well-developed obese in mild distress due to pain and nausea SKIN: Warm and dry. HEAD: Atraumatic. Normocephalic. EYES: Pupils equal and round. No scleral icterus. No injection or drainage. ENT: No nasal bleeding or discharge. Mucous membranes pink and moist. NECK: Trachea midline. No JVD. CARDIOVASCULAR: Regular rate and rhythm. RESPIRATORY: No accessory muscle use. Clear to auscultation. Breath sounds equal bilaterally. GASTROINTESTINAL: Abdomen soft, slightly tender upper and lower quadrants, trocar sites intact, nondistended. MUSCULOSKELETAL: Extremities without clubbing, cyanosis, or edema. No obvious deformities. NEUROLOGICAL: Awake and alert. No obvious cranial nerve deficits. Motor grossly within normal limits. Five out of 5 muscle strength in the arms and legs. Normal speech. PSYCHIATRIC: Appropriate mood and affect; insight and judgment normal. Hospital Course Acute pancreatitis with gallstones. Clinically improved lipase almost within normal limits. MRCP with no ductal dilatation. Transaminitis improving. Status post laparoscopic cholecystectomy by general surgery. Postoperative care with wound care, pain management with Lortab and IV morphine and diet as tolerated. She has been cleared for discharge by general surgery if tolerating by mouth and pain management by by mouth meds Chest tightness. Had transient mild expiratory wheezes. Vital signs stable. Lungs clear at this time. Chest x-ray negative. Albuterol as needed. Obesity. Weight reduction GI prophylaxis with Protonix Low risk for DVT Pt Condition on Discharge: Good Discharge Disposition: Discharge Home Discharge Time: <= 30 minutes Discharge Instructions DIET: Follow Instructions for: Heart Healthy Diet Activities you can perform: Shower Only-No Bath Activities to Avoid: Driving for 24 hrs, Strenuous Activity Follow up Referrals: PCP Follow-up - 1 Week Surgical - 2 Weeks with Larry Bryant MD New Medications: Hydrocodone-Acetaminophen (Lortab) 5-325 Mg Tab 1 TAB PO Q4H PRN PAIN #20 Ref 0 TAB Rajiv Waller MD Jan 16, 2017 10:39
[2017-01-16 12:36] VITALS: BP 123/62; PULSE 72; RESP 17; TEMP 98.3; O2SAT 97
--- NOTE | 2017-01-16 13:09 | MP ---
cc: TONY COKER M.D. DATE OF SURGERY 01/15/2017 PREOPERATIVE DIAGNOSIS Gallstone pancreatitis. POSTOPERATIVE DIAGNOSIS Gallstone pancreatitis. PROCEDURE Laparoscopic cholecystectomy. SURGEON Dr. Tony Coker ANESTHESIA General. INDICATIONS A pleasant 26-year-old woman who developed recurrent episodes of abdominal pain, worse most recently and was found to have pancreatitis. She was found to have gallstones. The pancreatitis clinically and laboratory-garcia resolved. Plans are made for laparoscopic cholecystectomy. INTRAOPERATIVE FINDINGS Tiny gallbladder with inflammatory adhesions. Gallbladder removed and sent to pathology. ESTIMATED BLOOD LOSS Less than 5 mL. DESCRIPTION OF PROCEDURE IN DETAIL The patient identified as Melany Emmanuel, taken to the or and placed in supine position. Sequential compression devices were placed on bilateral lower extremities. Following induction of adequate general endotracheal anesthesia, the patient's abdomen was prepped and draped in the usual sterile fashion with Betadine. Time-out procedure was performed. Following completion of time-out procedure to everyone's satisfaction within the room, 0.5% Marcaine with epinephrine was placed at each incision site. A supraumbilical 2-cm incision was carried out with the scalpel. Dissection continued posteriorly to the level of midline fascia. The base of the umbilicus was retracted anteriorly, the fascia was incised in vertical fashion allowing for entry into the peritoneal cavity with the surgeon's finger. The [employer] balloon Celsa trocars placed in the peritoneal cavity, its balloon inflated with CO2 insufflation until a level of 15 mmHg ensued. The patient was placed in a reverse Trendelenburg position, turned to left and two upper abdominal 5-mm trocars placed in the peritoneal cavity under direct laparoscopic view after incision of the skin with a scalpel. The gallbladders was immediately identified and was tiny, beneath a large liver lobe. It was slightly intrahepatic. There was one area of inflammatory adhesion on the inferior surface of the gallbladder which was taken down with a harmonic scalpel. The gallbladder was then removed from the gallbladder fossa in a dome-down technique using the harmonic scalpel. The cystic artery was divided with the harmonic scalpel. The cystic duct was isolated from surrounding tissues, ligated proximally and distally with 0-PDS Endoloops and the cystic duct was divided between the Endoloops. The gallbladder was placed into an Endo-retriever bag and removed through the supraumbilical fascial port incision site, passed off the field for pathologic evaluation. The right upper quadrant was examined. There had been minimal blood loss. There was no bilious or bloody drainage. The gallbladder fossa was hemostatic. The cystic duct ligature remained intact. There was no bleeding from the cystic arterial stump. Remaining local anesthetic was placed in subhepatic position. The brief survey of the remainder of the intraabdominal contents showed no obvious abnormalities. Trocars were removed under direct visualization. There was no evidence of bleeding from trocar sites. The abdomen was desufflated through the supraumbilical port and was then removed. The supraumbilical fascial incision was closed with interrupted 0 Vicryl [id number] sutures. The wounds were irrigated with saline and skin incisions were approximated with 4-0 Monocryl subcuticular sutures. Dressings were applied, Mastisol and 1/2-inch brown Steri-Strips. The patient tolerated the procedure without apparent complication. Sponge, needle and instrument counts were correct at the end of the case. MD ARMANDO Aponte/JOSEPHINE /9:40 AM /1:01 PM
--- NOTE | 2017-01-16 13:59 | HHI.PR ---
Subjective Subjective Notes getting ready for DC. Tolerating po well, no nausea. Bleeding some from umbilicus. Objective Vitals/I&O Vital Signs Date Time Temp Pulse Resp B/P Pulse Ox O2 Delivery O2 Flow Rate FiO2 01/16/17 12:36 98.3 72 17 123/62 97 01/16/17 09:40 21 01/15/17 10:15 Nasal Cannula 2 Labs Laboratory Tests Test 01/16/17 09:02 White Blood Count 11.1 Red Blood Count 4.53 Hemoglobin 13.8 Hematocrit 40.0 Mean Corpuscular Volume 88.3 Mean Corpuscular Hemoglobin 30.5 Mean Corpuscular Hemoglobin 34.5 Concent Red Cell Distribution Width 11.9 Platelet Count 242 Mean Platelet Volume 9.4 Neutrophils (%) (Auto) 74.7 Lymphocytes (%) (Auto) 18.8 Monocytes (%) (Auto) 6.2 Eosinophils (%) (Auto) 0.2 Basophils (%) (Auto) 0.1 Neutrophils # (Auto) 8.3 Lymphocytes # (Auto) 2.1 Monocytes # (Auto) 0.7 Eosinophils # (Auto) 0.0 Basophils # (Auto) 0.0 CBC Comment DIFF FINAL Differential Comment Sodium Level 135 Potassium Level 3.5 Chloride Level 102 Carbon Dioxide Level 24.1 Anion Gap 9 Blood Urea Nitrogen 9 Creatinine 0.72 Estimat Glomerular Filtration 99 Rate Random Glucose 127 Calcium Level 7.8 Magnesium Level 2.2 Total Bilirubin 0.4 Aspartate Amino Transf 43 (AST/SGOT) Alanine Aminotransferase 118 (ALT/SGPT) Alkaline Phosphatase 65 Total Protein 6.5 Albumin 3.3 Abdomen: Non-distended, Other (dry dressing intact with drainage.), Post-op tenderness Narrative Exam steri strips intact A/P Assessment and Plan POD 1 s/p lap steffany, gallstone pancreatitis. Going home. Stay hydrated, avoid excess fat and alcohol. Follow up with me in 1 -2 weeks. Larry Bryant MD Jan 16, 2017 13:59
== END 2017-01-16 14:43 | disposition home or self-care (01) | DRG 417 ==
LOC: NEPD 11:09 → NEDA 13:29 → NEPFCDU 15:18 → N05B 19:04
PROVIDERS: ADMIT Internal Medicine; ATTEND Internal Medicine
PROC: 0FT44ZZ Resection of Gallbladder, Percutaneous Endoscopic Approach (ICD-10-PCS; principal; 2017-01-15 08:31)
DX: K80.70 Calculus of gallbladder and bile duct without cholecystitis without obstruction (principal); K85.10 Biliary acute pancreatitis without necrosis or infection; E28.2 Polycystic ovarian syndrome; E66.9 Obesity, unspecified
CPT/HCPCS: 71010; 74181; 76377; 76705; 76937; 80053; 81001; 82948; 83690; 83735; 84703; 85025; 88304; 96361; 96374; 96375; J0131; J1650; J1885; J1956; J2250; J2270; J2405; J2710; J3010; J3480; J7030; J7042; J7120